=== PATIENT | male | born 2000 | race African-American/Black ===

== ENCOUNTER 2022-02-05 19:20 | Emergency (ER) | payer SELFPAY ==
[~2022-02-05] VITALS: Ht 167.6 cm; Wt 62.1 kg
[2022-02-05 19:20] VITALS: BP 109/62
--- NOTE | 2022-02-05 19:21 | NUR ---
pt offloaded to lobby.
--- NOTE | 2022-02-05 19:27 | NUR ---
DR. SOLITARIO NOTIFIED ABOUT PT CONDITION
[2022-02-05] MEDS ORDERED: ONDANSETRON 4 MG/2 ML VIAL IVP ONE (19:30)
[2022-02-05] MEDS ORDERED: KETOROLAC 30 MG/ML VIAL IVP ONE (19:30)
[2022-02-05] MEDS ORDERED: NACL 0.9% 1,000 ML IV ONE ×2 (19:30→21:05)
--- NOTE | 2022-02-05 19:35 | NUR ---
PT MOVED TO BED #11
--- NOTE | 2022-02-05 19:40 | NUR ---
FLU AND COVID SWABS COLLECTED AND [facility] TO LAB
--- NOTE | 2022-02-05 19:45 | NUR ---
21 Y/O MALE BIBA FROM [facility] C/O HEADACHE, NAUSEA, AND FEVER. A/OX4, UNLABORED BREATHING, DENIES COUGH, SOB, OR CP. AMBULATORY W/O ASSISTANCE. MEDHX- DENIES NKA
--- NOTE | 2022-02-05 19:45 | NUR ---
DR SOLITARIO AT BEDSIDE EXAMINING PT
--- NOTE | 2022-02-05 20:47 | NUR ---
ERMD AT BEDSIDE
--- NOTE | 2022-02-05 20:52 | NUR ---
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 POC: NICOLEFarhana [facility] CALL [facility] FOR DISCHARGE AT
[2022-02-05] MEDS ORDERED: IBUP-2213 PO (21:22)
[2022-02-05] MEDS ORDERED: ONDA8TAB87 PO (21:22)
[2022-02-05] MEDS ORDERED: ACETAMINOPHEN EXTRA STRENGTH 500 MG TAB PO ONE (21:40)
[2022-02-05 22:22] VITALS: BP 112/62
--- NOTE | 2022-02-05 22:24 | NUR ---
Patient discharged with v/s stable. Written and verbal after care instructions given and explained. Patient alert, oriented and verbalized understanding of instructions. Ambulatory with steady gait. All questions addressed prior to discharge. ID band removed. Patient advised to follow up with PMD. Rx of IBUPROFEN AND ZOFRAN given. Patient educated on indication of medication including possible reaction and side effects. Opportunity to ask questions provided and answered. A/OX4, UNLABORED BREATHING, AMBULATORY, AND CALM DEMENAOR.
== END 2022-02-05 22:24 | disposition home or self-care (01) ==
LOC: MED 19:20
DX: R50.9 Fever, unspecified (principal); Z20.822 Contact with and (suspected) exposure to COVID-19; R51.9 Headache, unspecified; R11.0 Nausea; M54.9 Dorsalgia, unspecified; K21.9 Gastro-esophageal reflux disease without esophagitis
CPT/HCPCS: 87426; 87804; 96361; 96374; 96375; 99284; J1885; J2405; J7030